=== PATIENT | male | born 1990 | race African-American/Black ===

== ENCOUNTER 2020-05-25 10:04 | Inpatient (IN) | payer MEDICAID, OTHER ==
[~2020-05-25] VITALS: Ht 167.6 cm; Wt 38.3 kg
[2020-05-25] MEDS ORDERED: SODIUM CHLORIDE 0.9% 1,000 ML IV ONE (10:45)
[2020-05-25 12:34] LABS: BASOPHILS % 0.4 % (0.0-2.0); EOSINOPHILS % 1.9 % (0.0-5.0); HEMATOCRIT. 55.5 % (42.0-52.0); HEMOGLOBIN. 17.2 g/dL (14.0-18.0); LYMPHOCYTES % 23.4 % (20.0-50.0); MEAN CORPUSCULAR HEMOGLOBIN 28.8 pg (28.0-32.0); MEAN CORPUSCULAR VOLUME 92.6 fL (80.0-94.0); MEAN PLATELET VOLUME 10.5 fl (7.4-10.4); MONOCYTES % 11.3 % (2.0-8.0); PLATELET 271 x1000/uL (130-400); RED BLOOD CELL COUNT 5.99 mill/uL (4.7-6.1); RED CELL DISTRIBUTION WIDTH 14.2 % (11.6-14.6)
[2020-05-25 12:36] LABS: CHLORIDE 141 mEq/L (98-107)
[2020-05-25 13:12] LABS: INR 1.1; PARTIAL THROMBOPLASTIN TIME 32.5 sec (23.4-31.0); PROTHROMBIN TIME 11.6 sec (9.6-11.0)
[2020-05-25 15:06] LABS: CLARITY URINE CLOUDY (CLEAR); COLOR URINE YELLOW (YELLOW); KETONES URINE NEGATIVE (NEGATIVE); LEUKOCYTE ESTERASE URINE 1+ (NEGATIVE); NITRITE URINE NEGATIVE (NEGATIVE); OCCULT BLOOD URINE 2+ (NEGATIVE); PH URINE 6.5 (4.5-8.0); PROTEIN URINE 2+ (NEGATIVE); SPECIFIC GRAVITY URINE 1.031 (1.005-1.030)
[2020-05-25] MEDS ORDERED: CEFTRIAXONE 1 G PREMIX 50 ML IV ONE (15:45)
[2020-05-25] MEDS ORDERED: DEXTROSE 5% WATER 1,000 ML IV ONE (17:45)
[2020-05-25] MEDS ORDERED: LORAZEPAM 2MG/ML CPJ IV PRN (19:45)
[2020-05-25] MEDS ORDERED: ONDANSETRON HCL 4MG/2ML INJ IV PRN (19:45)
[2020-05-25] MEDS: FAMOTIDINE 20MG/2ML VIAL IV SCH (21:44)
[2020-05-25] MEDS: DEXTROSE 5% WATER 1,000 ML IV SCH (21:44)
[2020-05-26] MEDS: DEXTROSE 5% WATER 1,000 ML IV SCH (05:00)
[2020-05-26] MEDS: FAMOTIDINE 20MG/2ML VIAL IV SCH (09:00)
[2020-05-26 09:48] LABS: BASOPHILS % 0.5 % (0.0-2.0); EOSINOPHILS % 1.6 % (0.0-5.0); HEMATOCRIT. 54.4 % (42.0-52.0); HEMOGLOBIN. 16.7 g/dL (14.0-18.0); LYMPHOCYTES % 22.8 % (20.0-50.0); MEAN CORPUSCULAR HEMOGLOBIN 28.7 pg (28.0-32.0); MEAN CORPUSCULAR VOLUME 93.5 fL (80.0-94.0); MEAN PLATELET VOLUME 10.5 fl (7.4-10.4); MONOCYTES % 11.5 % (2.0-8.0); NEUTROPHILS % 63.6 % (40.0-76.0); PLATELET 241 x1000/uL (130-400); RED BLOOD CELL COUNT 5.82 mill/uL (4.7-6.1); RED CELL DISTRIBUTION WIDTH 14.1 % (11.6-14.6)
[2020-05-26] MEDS ORDERED: VANCOMYCIN 1 G PREMIX 200 ML IV SCH (10:00)
[2020-05-26 10:37] LABS: CHLORIDE 133 mEq/L (98-107)
[2020-05-26 10:44] LABS: PHOSPHORUS 5.8 mg/dL (2.5-4.9)
[2020-05-26] MEDS: SODIUM CHLORIDE 0.45% 1,000 ML IV SCH (13:10)
[2020-05-26] MEDS ORDERED: PIPERACILLIN/TAZ 3.375G PREMIX 50 ML IV SCH (14:00)
[2020-05-26] MEDS ORDERED: PIPERACILLIN/TAZOBACTAM 2.25 G in DEXTROSE 5% WATER 50 ML IV SCH (14:00)
[2020-05-26] MEDS: PIPERACILLIN/TAZOBACTAM 3.375 G in DEXT 5% WATER 100 ML IV SCH (15:21)
[2020-05-27] MEDS: SODIUM CHLORIDE 0.45% 1,000 ML IV SCH ×4 (00:21→21:00)
[2020-05-27] MEDS: VANCOMYCIN 1 G PREMIX 200 ML IV SCH ×3 (00:22→21:00)
[2020-05-27] MEDS: FAMOTIDINE 20MG/2ML VIAL IV SCH ×3 (00:22→22:27)
[2020-05-27] MEDS: PIPERACILLIN/TAZOBACTAM 3.375 G in DEXT 5% WATER 100 ML IV SCH ×3 (02:12→17:22)
[2020-05-27 04:24] LABS: BASOPHILS % 0.5 % (0.0-2.0); CHLORIDE 125 mEq/L (98-107); EOSINOPHILS % 1.7 % (0.0-5.0); HEMATOCRIT. 46.6 % (42.0-52.0); LYMPHOCYTES % 20.8 % (20.0-50.0); MEAN CORPUSCULAR VOLUME 89.7 fL (80.0-94.0); MEAN PLATELET VOLUME 10.3 fl (7.4-10.4); MONOCYTES % 10.9 % (2.0-8.0); NEUTROPHILS % 66.1 % (40.0-76.0); PLATELET 154 x1000/uL (130-400); RED BLOOD CELL COUNT 5.19 mill/uL (4.7-6.1); RED CELL DISTRIBUTION WIDTH 13.1 % (11.6-14.6)
[2020-05-27 04:30] LABS: PHOSPHORUS 3.6 mg/dL (2.5-4.9)
[2020-05-27 05:01] LABS: HEPATITIS B SURFACE ANTIGEN NEGATIVE
[2020-05-27 05:31] LABS: HEPATITIS A AB IGM NEGATIVE (NEGATIVE)
[2020-05-27] MEDS ORDERED: POTASSIUM CHLORIDE INJ 40 MEQ in DEXT 5% WATER 250 ML IV ONE (07:00)
[2020-05-27 12:15] VITALS: BP 130/81
[2020-05-27 16:00] VITALS: BP 113/69
[2020-05-27] MEDS ORDERED: [UNRECOGNIZED DRUG - CODE] PO (16:29)
[2020-05-27] MEDS ORDERED: LORA-249 PO (16:29)
[2020-05-27] MEDS ORDERED: ESOM40SU PO (16:29)
[2020-05-27] MEDS: ACETAMINOPHEN 650MG SUPP PR PRN (17:22)
[2020-05-27 20:00] VITALS: BP 104/51
[2020-05-27 22:00] VITALS: BP 121/74
[2020-05-28] MEDS: PIPERACILLIN/TAZOBACTAM 3.375 G in DEXT 5% WATER 100 ML IV SCH ×3 (01:00→18:37)
[2020-05-28 04:00] VITALS: BP 128/65
[2020-05-28] MEDS: SODIUM CHLORIDE 0.45% 1,000 ML IV SCH ×3 (04:47→21:00)
[2020-05-28 07:59] LABS: BASOPHILS % 0.3 % (0.0-2.0); EOSINOPHILS % 0.8 % (0.0-5.0); HEMATOCRIT. 40.6 % (42.0-52.0); HEMOGLOBIN. 13.1 g/dL (14.0-18.0); LYMPHOCYTES % 16.6 % (20.0-50.0); MEAN CORPUSCULAR HEMOGLOBIN 29.2 pg (28.0-32.0); MEAN CORPUSCULAR VOLUME 90.3 fL (80.0-94.0); MEAN PLATELET VOLUME 10.8 fl (7.4-10.4); MONOCYTES % 8.9 % (2.0-8.0); NEUTROPHILS % 73.4 % (40.0-76.0); PLATELET 120 x1000/uL (130-400); RED CELL DISTRIBUTION WIDTH 13.3 % (11.6-14.6)
[2020-05-28 08:00] VITALS: BP 130/82
[2020-05-28 08:14] LABS: CHLORIDE 123 mEq/L (98-107)
[2020-05-28 08:24] LABS: PHOSPHORUS 2.3 mg/dL (2.5-4.9)
[2020-05-28] MEDS: FAMOTIDINE 20MG/2ML VIAL IV SCH (09:57)
[2020-05-28 12:00] VITALS: BP 114/67
[2020-05-28] MEDS: ACETAMINOPHEN 650MG SUPP PR PRN (13:30)
[2020-05-28 20:00] VITALS: BP 132/81
[2020-05-29] MEDS: FAMOTIDINE 20MG/2ML VIAL IV SCH ×3 (00:11→21:50)
[2020-05-29] MEDS: VANCOMYCIN 500 MG PREMIX 100 ML IV SCH ×3 (00:13→21:50)
[2020-05-29 00:40] VITALS: BP 135/78
[2020-05-29] MEDS: PIPERACILLIN/TAZOBACTAM 3.375 G in DEXT 5% WATER 100 ML IV SCH ×3 (02:02→18:09)
[2020-05-29] MEDS: SODIUM CHLORIDE 0.45% 1,000 ML IV SCH ×3 (03:27→21:50)
[2020-05-29 04:00] VITALS: BP 108/67
[2020-05-29 08:21] VITALS: BP 106/53
[2020-05-29 11:55] VITALS: BP 104/54
[2020-05-29 16:00] VITALS: BP 105/63
[2020-05-29 18:56] LABS: CHLORIDE 119 mEq/L (98-107)
[2020-05-29 20:00] VITALS: BP 91/57
[2020-05-29] MEDS ORDERED: POTASSIUM CHLORIDE 20MEQ/PACKET PO NR (20:30)
[2020-05-29] MEDS: ACETAMINOPHEN 650MG SUPP PR PRN (21:50)
[2020-05-30] VITALS: BP 109/68
[2020-05-30] MEDS: PIPERACILLIN/TAZOBACTAM 3.375 G in DEXT 5% WATER 100 ML IV SCH ×3 (00:10→16:18)
[2020-05-30] MEDS: ACETAMINOPHEN 650MG SUPP PR PRN ×2 (03:58→21:31)
[2020-05-30 04:00] VITALS: BP 122/78
[2020-05-30] MEDS: SODIUM CHLORIDE 0.45% 1,000 ML IV SCH (05:09)
[2020-05-30] MEDS ORDERED: POTASSIUM CHLORIDE 20MEQ/PACKET PO NR (06:00)
[2020-05-30 07:06] LABS: CHLORIDE 114 mEq/L (98-107)
[2020-05-30 08:00] VITALS: BP 99/52
[2020-05-30] MEDS: FAMOTIDINE 20MG/2ML VIAL IV SCH ×2 (08:15→21:30)
[2020-05-30] MEDS: VANCOMYCIN 500 MG PREMIX 100 ML IV SCH (08:16)
[2020-05-30 12:00] VITALS: BP 121/69
[2020-05-30] MEDS: VANCOMYCIN 750 MG PREMIX 150 ML IV SCH (15:12)
[2020-05-30 16:00] VITALS: BP 121/74
[2020-05-30 20:00] VITALS: BP 103/59
[2020-05-31] VITALS (8 sets, daily range): BP systolic 89–105; BP diastolic 45–56
[2020-05-31] MEDS: PIPERACILLIN/TAZOBACTAM 3.375 G in DEXT 5% WATER 100 ML IV SCH ×3 (01:16→17:29)
[2020-05-31] MEDS: VANCOMYCIN 750 MG PREMIX 150 ML IV SCH ×2 (03:57→14:20)
[2020-05-31 08:46] LABS: CHLORIDE 111 mEq/L (98-107)
[2020-05-31 08:54] LABS: HEMATOCRIT. 33.2 % (42.0-52.0); MEAN CORPUSCULAR HEMOGLOBIN 28.7 pg (28.0-32.0); MEAN CORPUSCULAR VOLUME 86.8 fL (80.0-94.0); RED BLOOD CELL COUNT 3.82 mill/uL (4.7-6.1); RED CELL DISTRIBUTION WIDTH 12.9 % (11.6-14.6)
[2020-05-31] MEDS: FAMOTIDINE 20MG/2ML VIAL IV SCH ×2 (09:47→20:58)
[2020-05-31 10:08] LABS: PLATELET ESTIMATE DECREASED
[2020-05-31] MEDS ORDERED: POTASSIUM CHLORIDE INJ 40 MEQ in DEXT 5% WATER 250 ML IV SCH (11:00)
[2020-05-31] MEDS ORDERED: POTASSIUM CHLORIDE INJ 40 MEQ in DEXT 5% WATER 250 ML IV ONE (11:30)
[2020-05-31] MEDS: DEXT 5%/0.45% NACL KCL 10MEQ/L 1,000 ML IV SCH (20:57)
[2020-06-01] VITALS: BP 103/60
[2020-06-01 04:00] VITALS: BP 98/54
[2020-06-01 08:00] VITALS: BP 109/64
[2020-06-01 08:22] LABS: HEMATOCRIT. 32.6 % (42.0-52.0); HEMOGLOBIN. 10.8 g/dL (14.0-18.0); MEAN CORPUSCULAR HEMOGLOBIN 29.1 pg (28.0-32.0); MEAN CORPUSCULAR VOLUME 87.7 fL (80.0-94.0); MEAN PLATELET VOLUME 10.4 fl (7.4-10.4); PLATELET 111 x1000/uL (130-400); RED BLOOD CELL COUNT 3.71 mill/uL (4.7-6.1); RED CELL DISTRIBUTION WIDTH 13.4 % (11.6-14.6)
[2020-06-01 08:41] LABS: CHLORIDE 118 mEq/L (98-107)
[2020-06-01] MEDS: FAMOTIDINE 20MG/2ML VIAL IV SCH ×2 (09:03→23:28)
[2020-06-01] MEDS: DEXT 5%/0.45% NACL KCL 10MEQ/L 1,000 ML IV SCH (09:17)
[2020-06-01 12:00] VITALS: BP 103/57
[2020-06-01] MEDS ORDERED: POTASSIUM CHLORIDE INJ 40 MEQ in DEXT 5% WATER 250 ML IV ONE (14:00)
[2020-06-01 16:00] VITALS: BP 103/57
[2020-06-01 20:36] VITALS: BP 102/55
[2020-06-01] MEDS: LORAZEPAM 2MG/ML CPJ IV PRN (23:08)
[2020-06-02 00:18] VITALS: BP 102/56
[2020-06-02 04:00] VITALS: BP 102/60
[2020-06-02] MEDS: DEXT 5%/0.45% NACL KCL 10MEQ/L 1,000 ML IV SCH (06:24)
[2020-06-02 07:05] LABS: PLATELET ESTIMATE DECREASED
[2020-06-02 07:40] LABS: MEAN CORPUSCULAR VOLUME 87.3 fL (80.0-94.0); MEAN PLATELET VOLUME 10.3 fl (7.4-10.4); PLATELET 126 x1000/uL (130-400); RED BLOOD CELL COUNT 3.78 mill/uL (4.7-6.1); RED CELL DISTRIBUTION WIDTH 13.3 % (11.6-14.6)
[2020-06-02 07:48] LABS: CHLORIDE 119 mEq/L (98-107)
[2020-06-02 08:00] VITALS: BP 108/59
[2020-06-02] MEDS: FAMOTIDINE 20MG/2ML VIAL IV SCH ×2 (08:28→20:56)
[2020-06-02] MEDS: LORAZEPAM 2MG/ML CPJ IV PRN ×2 (08:28→22:57)
[2020-06-02 12:00] VITALS: BP 96/58
[2020-06-02] MEDS ORDERED: SENNOSIDES/DOCUSATE SOD 8.6/50MG TABLET NG PRN (12:15)
[2020-06-02] MEDS: POLYETHYLENE GLYCOL 3350 (17GM) 1 DOSE PACK NG SCH (14:00)
[2020-06-02] MEDS: DEXT 5% WATER + KCL 20MEQ/L 1,000 ML IV SCH (14:00)
[2020-06-02 16:00] VITALS: BP 99/53
[2020-06-02 20:00] VITALS: BP 93/66
[2020-06-03] VITALS: BP 108/58
[2020-06-03] MEDS: DEXT 5% WATER + KCL 20MEQ/L 1,000 ML IV SCH ×2 (03:12→16:37)
[2020-06-03 04:00] VITALS: BP_SYST 108; BP_DIAS 58; BP_DIAS 59
[2020-06-03 07:32] LABS: CHLORIDE 115 mEq/L (98-107)
[2020-06-03 07:44] LABS: PHOSPHORUS 3.7 mg/dL (2.5-4.9)
[2020-06-03 08:00] VITALS: BP 113/73
[2020-06-03] MEDS: FAMOTIDINE 20MG/2ML VIAL IV SCH ×2 (08:26→22:07)
[2020-06-03] MEDS: POLYETHYLENE GLYCOL 3350 (17GM) 1 DOSE PACK NG SCH (08:26)
[2020-06-03 12:00] VITALS: BP 109/74
[2020-06-03] MEDS ORDERED: POLYETHYLENE GLYCOL 3350 (17GM) 1 DOSE PACK NG SCH (13:30)
[2020-06-03] MEDS: LORAZEPAM 2MG/ML CPJ IV PRN (13:52)
[2020-06-03 16:00] VITALS: BP 110/69
[2020-06-03 19:00] VITALS: BP 104/70
[2020-06-04 00:05] VITALS: BP 104/64
[2020-06-04] MEDS: LORAZEPAM 2MG/ML CPJ IV PRN ×4 (01:41→23:46)
[2020-06-04 04:00] VITALS: BP 96/62
[2020-06-04] MEDS: DEXT 5% WATER + KCL 20MEQ/L 1,000 ML IV SCH (06:24)
[2020-06-04 08:00] VITALS: BP 103/62
[2020-06-04] MEDS: POLYETHYLENE GLYCOL 3350 (17GM) 1 DOSE PACK NG SCH (08:36)
[2020-06-04] MEDS: FAMOTIDINE 20MG/2ML VIAL IV SCH ×2 (08:36→23:46)
[2020-06-04 12:00] VITALS: BP 107/69
[2020-06-04 16:00] VITALS: BP 105/63
[2020-06-04] MEDS: ACETAMINOPHEN 650MG SUPP PR PRN (16:21)
[2020-06-04 20:00] VITALS: BP 97/57
[2020-06-05 00:28] VITALS: BP 97/60
[2020-06-05 04:00] VITALS: BP 96/60
[2020-06-05 08:00] VITALS: BP_SYST 94
[2020-06-05] MEDS: POLYETHYLENE GLYCOL 3350 (17GM) 1 DOSE PACK NG SCH (08:33)
[2020-06-05] MEDS: FAMOTIDINE 20MG/2ML VIAL IV SCH ×2 (08:33→21:46)
[2020-06-05] MEDS: LORAZEPAM 2MG/ML CPJ IV PRN ×3 (09:01→18:19)
[2020-06-05 12:00] VITALS: BP 94/63
[2020-06-05 16:00] VITALS: BP 99/64
[2020-06-05 20:00] VITALS: BP 90/49
[2020-06-06 00:44] VITALS: BP 92/60
[2020-06-06 08:00] VITALS: BP 131/86
[2020-06-06] MEDS: FAMOTIDINE 20MG/2ML VIAL IV SCH ×2 (08:49→20:07)
[2020-06-06] MEDS: POLYETHYLENE GLYCOL 3350 (17GM) 1 DOSE PACK NG SCH (08:49)
[2020-06-06 11:22] LABS: BASOPHILS % 0.6 % (0.0-2.0); EOSINOPHILS % 2.2 % (0.0-5.0); HEMATOCRIT. 31.5 % (42.0-52.0); HEMOGLOBIN. 10.6 g/dL (14.0-18.0); MEAN CORPUSCULAR HEMOGLOBIN 28.8 pg (28.0-32.0); MEAN CORPUSCULAR VOLUME 85.4 fL (80.0-94.0); MEAN PLATELET VOLUME 8.2 fl (7.4-10.4); MONOCYTES % 8.6 % (2.0-8.0); NEUTROPHILS % 73.6 % (40.0-76.0); PLATELET 397 x1000/uL (130-400); RED BLOOD CELL COUNT 3.69 mill/uL (4.7-6.1); RED CELL DISTRIBUTION WIDTH 13.4 % (11.6-14.6)
[2020-06-06 11:30] LABS: CHLORIDE 107 mEq/L (98-107)
[2020-06-06 12:00] VITALS: BP 102/57
[2020-06-06 16:00] VITALS: BP_SYST 99; BP_DIAS 60; BP_DIAS 91
[2020-06-06 20:00] VITALS: BP 106/64
[2020-06-06] MEDS: LORAZEPAM 2MG/ML CPJ IV PRN (20:07)
[2020-06-07] VITALS: BP 100/60
[2020-06-07 04:30] VITALS: BP 105/69
[2020-06-07] MEDS ORDERED: LORAZEPAM 2MG/ML CPJ IV PRN (05:30)
[2020-06-07 06:57] LABS: BASOPHILS % 0.4 % (0.0-2.0); EOSINOPHILS % 1.2 % (0.0-5.0); HEMATOCRIT. 31.8 % (42.0-52.0); HEMOGLOBIN. 10.7 g/dL (14.0-18.0); MEAN CORPUSCULAR HEMOGLOBIN 29.5 pg (28.0-32.0); MEAN CORPUSCULAR VOLUME 87.5 fL (80.0-94.0); MEAN PLATELET VOLUME 8.7 fl (7.4-10.4); NEUTROPHILS % 80.4 % (40.0-76.0); PLATELET 423 x1000/uL (130-400); RED BLOOD CELL COUNT 3.63 mill/uL (4.7-6.1); RED CELL DISTRIBUTION WIDTH 13.4 % (11.6-14.6)
[2020-06-07 07:07] LABS: CHLORIDE 108 mEq/L (98-107)
[2020-06-07 08:00] VITALS: BP 105/71
[2020-06-07] MEDS: FAMOTIDINE 20MG/2ML VIAL IV SCH ×2 (08:37→19:59)
[2020-06-07] MEDS: POLYETHYLENE GLYCOL 3350 (17GM) 1 DOSE PACK NG SCH (09:00)
[2020-06-07 12:00] VITALS: BP 108/75
[2020-06-07] MEDS: LORAZEPAM 2MG/ML CPJ IV PRN (15:36)
[2020-06-07] MEDS: DEXT 5%/0.45% NACL 1000ML 1,000 ML IV SCH (17:00)
[2020-06-07 20:00] VITALS: BP 112/71
[2020-06-08 00:05] VITALS: BP 115/76
[2020-06-08 04:00] VITALS: BP 113/74
[2020-06-08] MEDS: LORAZEPAM 2MG/ML CPJ IV PRN ×3 (04:39→20:38)
[2020-06-08] MEDS: DEXT 5%/0.45% NACL 1000ML 1,000 ML IV SCH ×2 (05:27→20:38)
[2020-06-08 07:37] LABS: BASOPHILS % 0.7 % (0.0-2.0); HEMATOCRIT. 34.7 % (42.0-52.0); HEMOGLOBIN. 11.4 g/dL (14.0-18.0); LYMPHOCYTES % 13.3 % (20.0-50.0); MEAN CORPUSCULAR HEMOGLOBIN 28.8 pg (28.0-32.0); MEAN CORPUSCULAR VOLUME 87.8 fL (80.0-94.0); MEAN PLATELET VOLUME 8.6 fl (7.4-10.4); MONOCYTES % 8.2 % (2.0-8.0); NEUTROPHILS % 75.8 % (40.0-76.0); PLATELET 476 x1000/uL (130-400); RED BLOOD CELL COUNT 3.96 mill/uL (4.7-6.1); RED CELL DISTRIBUTION WIDTH 13.2 % (11.6-14.6)
[2020-06-08 07:55] LABS: CHLORIDE 112 mEq/L (98-107)
[2020-06-08 08:00] VITALS: BP 114/78
[2020-06-08] MEDS: POLYETHYLENE GLYCOL 3350 (17GM) 1 DOSE PACK NG SCH (09:00)
[2020-06-08] MEDS: FAMOTIDINE 20MG/2ML VIAL IV SCH ×2 (09:13→20:38)
[2020-06-08 12:00] VITALS: BP 112/83
[2020-06-08 16:00] VITALS: BP 111/73
[2020-06-08 20:00] VITALS: BP 103/72
[2020-06-09 00:05] VITALS: BP 109/76
[2020-06-09 04:00] VITALS: BP 109/71
[2020-06-09 08:36] VITALS: BP 108/74
[2020-06-09] MEDS: POLYETHYLENE GLYCOL 3350 (17GM) 1 DOSE PACK NG SCH (09:00)
[2020-06-09] MEDS: FAMOTIDINE 20MG/2ML VIAL IV SCH ×2 (09:32→21:44)
[2020-06-09] MEDS: DEXT 5%/0.45% NACL 1000ML 1,000 ML IV SCH ×2 (09:35→21:44)
[2020-06-09 12:08] VITALS: BP 126/78
[2020-06-09] MEDS: LORAZEPAM 2MG/ML CPJ IV PRN ×2 (13:15→17:23)
[2020-06-09 16:50] VITALS: BP 134/99
[2020-06-09 20:00] VITALS: BP 132/89
[2020-06-10] VITALS (7 sets, daily range): BP systolic 111–130; BP diastolic 72–101
[2020-06-10] MEDS: POLYETHYLENE GLYCOL 3350 (17GM) 1 DOSE PACK NG SCH (09:00)
[2020-06-10] MEDS: FAMOTIDINE 20MG/2ML VIAL IV SCH ×2 (09:32→21:53)
[2020-06-10] MEDS: DEXT 5%/0.45% NACL 1000ML 1,000 ML IV SCH (14:09)
[2020-06-10] MEDS: LORAZEPAM 2MG/ML CPJ IV PRN (15:59)
[2020-06-11 00:13] VITALS: BP 141/76
[2020-06-11] MEDS: LORAZEPAM 2MG/ML CPJ IV PRN (01:30)
[2020-06-11] MEDS: DEXT 5%/0.45% NACL 1000ML 1,000 ML IV SCH ×2 (03:49→15:28)
[2020-06-11 04:00] VITALS: BP 124/95
[2020-06-11 08:00] VITALS: BP 132/104
[2020-06-11] MEDS: POLYETHYLENE GLYCOL 3350 (17GM) 1 DOSE PACK NG SCH (09:00)
[2020-06-11] MEDS: FAMOTIDINE 20MG/2ML VIAL IV SCH ×2 (10:11→21:53)
[2020-06-11 12:00] VITALS: BP 130/85
[2020-06-11 16:00] VITALS: BP 126/84
[2020-06-11 20:00] VITALS: BP 123/83
[2020-06-12 00:11] VITALS: BP 119/66
[2020-06-12] MEDS: DEXT 5%/0.45% NACL 1000ML 1,000 ML IV SCH ×2 (03:53→16:17)
[2020-06-12 04:00] VITALS: BP 116/71
[2020-06-12 08:00] VITALS: BP 152/74
[2020-06-12] MEDS: POLYETHYLENE GLYCOL 3350 (17GM) 1 DOSE PACK NG SCH (09:00)
[2020-06-12] MEDS: FAMOTIDINE 20MG/2ML VIAL IV SCH ×2 (10:21→21:00)
[2020-06-12 12:00] VITALS: BP 131/76
[2020-06-12 16:00] VITALS: BP 136/93
[2020-06-12] MEDS: ACETAMINOPHEN 650MG SUPP PR PRN (17:38)
[2020-06-12 20:00] VITALS: BP 140/78
[2020-06-13 00:05] VITALS: BP 134/71
[2020-06-13 04:00] VITALS: BP 133/84
[2020-06-13] MEDS: POLYETHYLENE GLYCOL 3350 (17GM) 1 DOSE PACK NG SCH (09:00)
[2020-06-13] MEDS ORDERED: LIDOCAINE HCL 1% 20ML VIAL (Pyxis) INJ ONE (10:00)
[2020-06-13] MEDS ORDERED: LORAZEPAM 2MG/ML CPJ IM NR (11:00)
[2020-06-13 12:00] VITALS: BP 136/90
[2020-06-13 16:00] VITALS: BP 132/88
[2020-06-13] MEDS: FAMOTIDINE 20MG/2ML VIAL IV SCH ×2 (17:54→21:03)
[2020-06-13] MEDS: CIPROFLOXACIN 0.3% OPHTH SOLN 2.5ML RIGHTEYE SCH ×2 (17:54→21:00)
[2020-06-13] MEDS: DEXT 5%/0.45% NACL 1000ML 1,000 ML IV SCH ×2 (19:40→22:42)
[2020-06-13 20:00] VITALS: BP 115/79
[2020-06-14 00:04] VITALS: BP 112/60
[2020-06-14 04:00] VITALS: BP 139/87
[2020-06-14 06:59] LABS: EOSINOPHILS % 2.3 % (0.0-5.0); HEMATOCRIT. 34.9 % (42.0-52.0); HEMOGLOBIN. 11.2 g/dL (14.0-18.0); LYMPHOCYTES % 16.6 % (20.0-50.0); MEAN CORPUSCULAR HEMOGLOBIN 27.9 pg (28.0-32.0); MEAN CORPUSCULAR VOLUME 86.3 fL (80.0-94.0); MEAN PLATELET VOLUME 8.7 fl (7.4-10.4); MONOCYTES % 9.6 % (2.0-8.0); NEUTROPHILS % 70.5 % (40.0-76.0); PLATELET 465 x1000/uL (130-400); RED BLOOD CELL COUNT 4.04 mill/uL (4.7-6.1); RED CELL DISTRIBUTION WIDTH 13.3 % (11.6-14.6)
[2020-06-14 08:28] LABS: CHLORIDE 108 mEq/L (98-107)
[2020-06-14] MEDS: POLYETHYLENE GLYCOL 3350 (17GM) 1 DOSE PACK NG SCH (09:00)
[2020-06-14] MEDS: CIPROFLOXACIN 0.3% OPHTH SOLN 2.5ML RIGHTEYE SCH ×4 (09:11→22:42)
[2020-06-14] MEDS: FAMOTIDINE 20MG/2ML VIAL IV SCH ×2 (09:11→22:42)
[2020-06-14] MEDS: DEXT 5%/0.45% NACL 1000ML 1,000 ML IV SCH (09:16)
[2020-06-14] MEDS ORDERED: POTASSIUM CHLORIDE 20MEQ/PACKET PO NR (10:30)
[2020-06-14 12:00] VITALS: BP 125/86
[2020-06-14] MEDS ORDERED: POTASSIUM CHLORIDE INJ 40 MEQ in SODIUM CHLORIDE 0.9% 250 ML IV NR (14:00)
[2020-06-14 16:00] VITALS: BP 146/98
[2020-06-14] MEDS: LORAZEPAM 2MG/ML CPJ IV PRN (18:13)
[2020-06-14 20:00] VITALS: BP 151/114
[2020-06-14] MEDS: NEO/POLYMYX B SULF/DEXAMETH 0.1% OPHTH SUSP 5ML RIGHTEYE SCH (23:54)
[2020-06-15] VITALS: BP 133/93
[2020-06-15] MEDS: LORAZEPAM 2MG/ML CPJ IV PRN ×2 (00:34→15:25)
[2020-06-15 04:00] VITALS: BP 147/96
[2020-06-15] MEDS: NEO/POLYMYX B SULF/DEXAMETH 0.1% OPHTH SUSP 5ML RIGHTEYE SCH ×4 (05:55→23:10)
[2020-06-15 07:09] LABS: HEMATOCRIT. 37.4 % (42.0-52.0); HEMOGLOBIN. 12.2 g/dL (14.0-18.0); MEAN CORPUSCULAR HEMOGLOBIN 27.8 pg (28.0-32.0); MEAN CORPUSCULAR VOLUME 84.8 fL (80.0-94.0); RED BLOOD CELL COUNT 4.41 mill/uL (4.7-6.1); RED CELL DISTRIBUTION WIDTH 13.4 % (11.6-14.6)
[2020-06-15 07:10] LABS: CHLORIDE 108 mEq/L (98-107)
[2020-06-15 08:00] VITALS: BP 137/98
[2020-06-15] MEDS: POLYETHYLENE GLYCOL 3350 (17GM) 1 DOSE PACK NG SCH (09:00)
[2020-06-15 09:36] LABS: PLATELET ESTIMATE SLIGHTLY INCREASED
[2020-06-15] MEDS: FAMOTIDINE 20MG/2ML VIAL IV SCH ×2 (09:56→23:10)
[2020-06-15] MEDS: CIPROFLOXACIN 0.3% OPHTH SOLN 2.5ML RIGHTEYE SCH ×4 (09:57→21:00)
[2020-06-15] MEDS ORDERED: POTASSIUM CHLORIDE 20MEQ/PACKET PO NR (10:30)
[2020-06-15 12:00] VITALS: BP 126/87
[2020-06-15 16:00] VITALS: BP 114/79
[2020-06-15] MEDS ORDERED: POTASSIUM CHLORIDE INJ 40 MEQ in SODIUM CHLORIDE 0.9% 230 ML IV NR (18:30)
[2020-06-15] MEDS: DEXT 5%/0.45% NACL 1000ML 1,000 ML IV SCH (23:12)
[2020-06-16] MEDS: NEO/POLYMYX B SULF/DEXAMETH 0.1% OPHTH SUSP 5ML RIGHTEYE SCH ×3 (05:50→18:10)
[2020-06-16 08:06] LABS: CHLORIDE 107 mEq/L (98-107)
[2020-06-16] MEDS: POLYETHYLENE GLYCOL 3350 (17GM) 1 DOSE PACK NG SCH (08:18)
[2020-06-16 08:25] VITALS: BP 127/102
[2020-06-16 08:46] LABS: BASOPHILS % 0.8 % (0.0-2.0); EOSINOPHILS % 3.5 % (0.0-5.0); HEMATOCRIT. 37.8 % (42.0-52.0); HEMOGLOBIN. 12.5 g/dL (14.0-18.0); MEAN CORPUSCULAR HEMOGLOBIN 28.1 pg (28.0-32.0); MEAN CORPUSCULAR VOLUME 85.2 fL (80.0-94.0); MONOCYTES % 11.6 % (2.0-8.0); NEUTROPHILS % 62.1 % (40.0-76.0); RED BLOOD CELL COUNT 4.43 mill/uL (4.7-6.1); RED CELL DISTRIBUTION WIDTH 13.2 % (11.6-14.6)
[2020-06-16] MEDS: FAMOTIDINE 20MG/2ML VIAL IV SCH ×2 (09:38→20:02)
[2020-06-16] MEDS: CIPROFLOXACIN 0.3% OPHTH SOLN 2.5ML RIGHTEYE SCH ×4 (09:47→20:03)
[2020-06-16 10:50] LABS: PLATELET 290 x1000/uL (130-400)
[2020-06-16] MEDS: DEXT 5%/0.45% NACL 1000ML 1,000 ML IV SCH (13:22)
[2020-06-16 20:00] VITALS: BP 123/87
[2020-06-16] MEDS: LORAZEPAM 2MG/ML CPJ IV PRN (20:02)
[2020-06-17] MEDS: NEO/POLYMYX B SULF/DEXAMETH 0.1% OPHTH SUSP 5ML RIGHTEYE SCH ×4 (00:07→17:21)
[2020-06-17] MEDS: DEXT 5%/0.45% NACL 1000ML 1,000 ML IV SCH ×2 (00:33→14:45)
[2020-06-17 08:00] VITALS: BP 126/98
[2020-06-17] MEDS: POLYETHYLENE GLYCOL 3350 (17GM) 1 DOSE PACK NG SCH (09:00)
[2020-06-17] MEDS: FAMOTIDINE 20MG/2ML VIAL IV SCH ×2 (09:29→21:14)
[2020-06-17] MEDS: CIPROFLOXACIN 0.3% OPHTH SOLN 2.5ML RIGHTEYE SCH ×4 (09:37→21:15)
[2020-06-17] MEDS: LORAZEPAM 2MG/ML CPJ IV PRN (17:39)
[2020-06-18] MEDS: NEO/POLYMYX B SULF/DEXAMETH 0.1% OPHTH SUSP 5ML RIGHTEYE SCH ×3 (01:01→17:25)
[2020-06-18] MEDS: LORAZEPAM 2MG/ML CPJ IV PRN ×2 (01:10→08:55)
[2020-06-18 08:00] VITALS: BP 98/66
[2020-06-18] MEDS: FAMOTIDINE 20MG/2ML VIAL IV SCH (08:53)
[2020-06-18] MEDS: CIPROFLOXACIN 0.3% OPHTH SOLN 2.5ML RIGHTEYE SCH ×4 (08:53→21:00)
[2020-06-18] MEDS: POLYETHYLENE GLYCOL 3350 (17GM) 1 DOSE PACK NG SCH (08:55)
[2020-06-18] MEDS: DEXT 5%/0.45% NACL 1000ML 1,000 ML IV SCH ×2 (08:59→16:57)
[2020-06-18 12:44] LABS: BASOPHILS % 1.4 % (0.0-2.0); EOSINOPHILS % 8.5 % (0.0-5.0); HEMATOCRIT. 36.9 % (42.0-52.0); HEMOGLOBIN. 12.1 g/dL (14.0-18.0); LYMPHOCYTES % 23.6 % (20.0-50.0); MEAN CORPUSCULAR HEMOGLOBIN 27.9 pg (28.0-32.0); MEAN CORPUSCULAR VOLUME 85.2 fL (80.0-94.0); MONOCYTES % 8.6 % (2.0-8.0); NEUTROPHILS % 57.9 % (40.0-76.0); RED BLOOD CELL COUNT 4.33 mill/uL (4.7-6.1); RED CELL DISTRIBUTION WIDTH 13.3 % (11.6-14.6)
[2020-06-18 12:53] LABS: CHLORIDE 107 mEq/L (98-107)
[2020-06-18] MEDS: PANTOPRAZOLE SODIUM 40 MG/VIAL IV SCH ×2 (13:21→23:52)
[2020-06-18 13:28] LABS: INR 1.2; PARTIAL THROMBOPLASTIN TIME 48.7 sec (23.4-31.0); PROTHROMBIN TIME 12.8 sec (9.6-11.0)
[2020-06-18] MEDS ORDERED: CEFAZOLIN 1000MG PREMIX 50 ML IV SCH (14:00)
[2020-06-18 16:01] LABS: PLATELET 286 x1000/uL (130-400)
[2020-06-18] MEDS ORDERED: POTASSIUM CHLORIDE INJ 40 MEQ in DEXT 5% WATER 500 ML IV NR (18:00)
[2020-06-18 20:00] VITALS: BP 92/64
[2020-06-19] VITALS: BP 104/72
[2020-06-19] MEDS: LORAZEPAM 2MG/ML CPJ IV PRN ×2 (02:09→10:50)
[2020-06-19 04:00] VITALS: BP 105/69
[2020-06-19] MEDS: NEO/POLYMYX B SULF/DEXAMETH 0.1% OPHTH SUSP 5ML RIGHTEYE SCH ×4 (05:31→17:46)
[2020-06-19 07:02] LABS: CHLORIDE 109 mEq/L (98-107)
[2020-06-19 07:06] LABS: HEMATOCRIT. 37.6 % (42.0-52.0); HEMOGLOBIN. 12.6 g/dL (14.0-18.0); MEAN CORPUSCULAR HEMOGLOBIN 28.4 pg (28.0-32.0); RED BLOOD CELL COUNT 4.43 mill/uL (4.7-6.1); RED CELL DISTRIBUTION WIDTH 13.4 % (11.6-14.6)
[2020-06-19 08:00] VITALS: BP 105/80
[2020-06-19] MEDS: PANTOPRAZOLE SODIUM 40 MG/VIAL IV SCH (08:49)
[2020-06-19] MEDS: CIPROFLOXACIN 0.3% OPHTH SOLN 2.5ML RIGHTEYE SCH ×4 (08:50→21:00)
[2020-06-19] MEDS: POLYETHYLENE GLYCOL 3350 (17GM) 1 DOSE PACK NG SCH (08:50)
[2020-06-19 10:28] LABS: NUCLEATED RED BLOOD CELLS 1 /100 WBC; PLATELET ESTIMATE NORMAL
[2020-06-19] MEDS: DEXT 5%/0.45% NACL 1000ML 1,000 ML IV SCH (11:03)
[2020-06-19 12:00] VITALS: BP 113/80
[2020-06-19] MEDS ORDERED: CEFAZOLIN 1000MG PREMIX 50 ML IV SCH (12:00)
[2020-06-19] MEDS ORDERED: MIDAZOLAM HCL 5 MG/5 ML VIAL IV PRN (14:32)
[2020-06-19] MEDS ORDERED: MIDAZOLAM HCL 5 MG/5 ML VIAL ONE (14:35)
[2020-06-19] MEDS ORDERED: FENTANYL CITRATE/PF 50MCG/ML 2ML VIAL ONE (14:35)
[2020-06-19 16:00] VITALS: BP 131/99
[2020-06-19 20:00] VITALS: BP 119/98
[2020-06-20] VITALS: BP_SYST 119; BP_SYST 127; BP_DIAS 85; BP_DIAS 95
[2020-06-20] MEDS: NEO/POLYMYX B SULF/DEXAMETH 0.1% OPHTH SUSP 5ML RIGHTEYE SCH ×3 (00:13→11:21)
[2020-06-20] MEDS: PANTOPRAZOLE SODIUM 40 MG/VIAL IV SCH ×2 (00:13→09:39)
[2020-06-20] MEDS: LORAZEPAM 2MG/ML CPJ IV PRN ×2 (00:19→06:59)
[2020-06-20] MEDS: DEXT 5%/0.45% NACL 1000ML 1,000 ML IV SCH (07:00)
[2020-06-20 08:00] VITALS: BP 112/81
[2020-06-20] MEDS: CIPROFLOXACIN 0.3% OPHTH SOLN 2.5ML RIGHTEYE SCH (09:39)
[2020-06-20] MEDS: POLYETHYLENE GLYCOL 3350 (17GM) 1 DOSE PACK NG SCH (09:39)
[2020-06-20 12:00] VITALS: BP 125/82
== END 2020-06-20 13:20 | disposition home or self-care (01) | DRG 252 ==
LOC: ER 10:26 → MICUSO 16:19 → EDBEDREQ 16:26 → EDBEDREQTM 16:26 → EDBEDREQSVC 16:26 → 7EST 05-27 10:25 → 6WST 06-15 20:04 → 6EST 06-17 21:44
PROVIDERS: ADMIT Internal Medicine; ATTEND Internal Medicine
PROC: 05HY33Z Insertion of Infusion Device into Upper Vein, Percutaneous Approach (ICD-10-PCS; 2020-06-13)
PROC: B54MZZA Ultrasonography of Right Upper Extremity Veins, Guidance (ICD-10-PCS; 2020-06-13)
PROC: 0D20XUZ Change Feeding Device in Upper Intestinal Tract, External Approach (ICD-10-PCS; principal; 2020-06-19)
DX: K94.23 Gastrostomy malfunction (principal); U07.1 COVID-19; E43 Unspecified severe protein-calorie malnutrition; M41.9 Scoliosis, unspecified; N17.9 Acute kidney failure, unspecified; E86.9 Volume depletion, unspecified; E87.0 Hyperosmolality and hypernatremia; G80.9 Cerebral palsy, unspecified; E86.0 Dehydration; R74.01 Elevation of levels of liver transaminase levels; D64.9 Anemia, unspecified; Y83.8 Other surgical procedures as the cause of abnormal reaction of the patient, or of later complication, without mention of misadventure at the time of the procedure; Y82.8 Other medical devices associated with adverse incidents; R13.12 Dysphagia, oropharyngeal phase; E88.09 Other disorders of plasma-protein metabolism, not elsewhere classified; E87.6 Hypokalemia; E80.6 Other disorders of bilirubin metabolism; Z98.2 Presence of cerebrospinal fluid drainage device; Z68.1 Body mass index [BMI] 19.9 or less, adult; N39.0 Urinary tract infection, site not specified; G93.41 Metabolic encephalopathy
CPT/HCPCS: 36415; 71045; 76700; 76937; 80048; 80053; 80076; 80202; 81003; 82248; 82962; 83735; 83880; 84100; 84484; 85025; 86705; 86709; 86803; 87340; 87426; 87635; 92610; 93005; 99291; C1725; C1769; C1893; C9113; J0690; J0696; J2060; J2250; J2543; J3010; J3370; J3480; J3490; J7030; J7050; J7060; J7070; U0003

== ENCOUNTER 2020-07-13 19:26 | Emergency (ER) | payer MEDICAID ==
[~2020-07-13] VITALS: Ht 134.6 cm; Wt 32.0 kg
[~2020-07-13 19:26] MED LIST: ESOM40SU PO; LORA-249 PO; [UNRECOGNIZED DRUG - CODE] PO
[2020-07-13] MEDS ORDERED: DIATR MEGLU/DIATRIZOATE SOLN 30ML ONE (22:04)
[2020-07-14 00:18] VITALS: BP 97/64
== END 2020-07-14 00:24 | disposition home or self-care (01) ==
LOC: ER 19:33
DX: T85.528A Displacement of other gastrointestinal prosthetic devices, implants and grafts, initial encounter (principal); G80.8 Other cerebral palsy; G40.909 Epilepsy, unspecified, not intractable, without status epilepticus; Y84.8 Other medical procedures as the cause of abnormal reaction of the patient, or of later complication, without mention of misadventure at the time of the procedure; Y82.8 Other medical devices associated with adverse incidents
CPT/HCPCS: 74018; 99284; Q9963

== ENCOUNTER 2020-10-04 14:31 | Emergency (ER) | payer MEDICAID ==
[~2020-10-04] VITALS: Ht 129.5 cm; Wt 30.0 kg
[2020-10-04 17:09] VITALS: BP 118/76
== END 2020-10-04 17:10 | disposition home or self-care (01) ==
LOC: ER 14:52
DX: K94.23 Gastrostomy malfunction (principal); G40.909 Epilepsy, unspecified, not intractable, without status epilepticus; F79 Unspecified intellectual disabilities; Z99.3 Dependence on wheelchair; Y83.3 Surgical operation with formation of external stoma as the cause of abnormal reaction of the patient, or of later complication, without mention of misadventure at the time of the procedure; Y92.018 Other place in single-family (private) house as the place of occurrence of the external cause
CPT/HCPCS: 99284

== ENCOUNTER 2020-11-14 12:52 | Emergency (ER) | payer MEDICAID ==
[~2020-11-14] VITALS: Ht 104.1 cm; Wt 45.0 kg
[2020-11-14 13:43] VITALS: BP 114/77
== END 2020-11-14 14:58 ==
LOC: ER 12:52
DX: K94.03 Colostomy malfunction (principal)
CPT/HCPCS: 99281; Z7610

== ENCOUNTER 2022-07-05 07:10 | Emergency (ER) | payer MEDICAID ==
[~2022-07-05] VITALS: Ht 137.2 cm; Wt 50.0 kg
[2022-07-05 07:46] VITALS: BP 105/65
== END 2022-07-05 09:04 | disposition home or self-care (01) ==
LOC: ER 07:10
DX: Z43.1 Encounter for attention to gastrostomy (principal)
CPT/HCPCS: 43762; 99281; 99284

== ENCOUNTER 2022-07-23 11:05 | Emergency (ER) | payer MEDICAID ==
[~2022-07-23] VITALS: Ht 144.8 cm; Wt 36.0 kg
[2022-07-23 11:11] VITALS: BP 107/63
[2022-07-23] MEDS ORDERED: BACITRACIN 15GM TUBE TOP ONE (13:45)
== END 2022-07-23 13:44 | disposition home or self-care (01) ==
LOC: ER 11:05
DX: K94.23 Gastrostomy malfunction (principal); Z86.59 Personal history of other mental and behavioral disorders; Z98.890 Other specified postprocedural states
CPT/HCPCS: 99282; 99284

== ENCOUNTER 2022-09-30 06:38 | Emergency (ER) | payer MEDICAID ==
[~2022-09-30] VITALS: Ht 149.9 cm; Wt 41.0 kg
[2022-09-30 06:52] VITALS: BP 143/90
[2022-09-30 08:59] LABS: CHLORIDE 104 mEq/L (98-107)
[2022-09-30 09:09] LABS: HEMATOCRIT. 44.8 % (42.0-52.0); HEMOGLOBIN. 15.1 g/dL (14.0-18.0); MEAN CORPUSCULAR HEMOGLOBIN 29.2 pg (28.0-32.0); MEAN CORPUSCULAR VOLUME 86.7 fL (80.0-94.0); RED BLOOD CELL COUNT 5.17 mill/uL (4.7-6.1); RED CELL DISTRIBUTION WIDTH 13.3 % (11.6-14.6)
[2022-09-30 09:14] LABS: INR 1.2; PROTHROMBIN TIME 12.4 sec (9.6-11.0)
[2022-09-30] MEDS ORDERED: IOHEXOL-300 50 ML BOTTLE IV ONE (11:16)
[2022-09-30] MEDS ORDERED: LIDOCAINE HCL 1% 10 MG/ML 10ML VIAL ONE (11:16)
[2022-09-30] MEDS ORDERED: LIDOCAINE HCL 2% JELLY 5ML ONE (11:17)
== END 2022-09-30 12:43 | disposition home or self-care (01) ==
LOC: ER 06:38
DX: K94.23 Gastrostomy malfunction (principal)
CPT/HCPCS: 36415; 36598; 49450; 80053; 85025; 85610; 99284; Q9967; J3490

== ENCOUNTER 2022-10-22 07:28 | Emergency (ER) | payer MEDICAID ==
[~2022-10-22] VITALS: Ht 149.9 cm; Wt 41.0 kg
[2022-10-22 07:55] VITALS: BP 129/83
[2022-10-22] MEDS ORDERED: DIATR MEGLU/DIATRIZOATE SOLN 30ML PO ONE (08:30)
[2022-10-22] MEDS ORDERED: DIATR MEGLU/DIATRIZOATE SOLN 30ML ONE (13:23)
== END 2022-10-22 14:18 | disposition home or self-care (01) ==
LOC: ER 07:28
DX: Z43.1 Encounter for attention to gastrostomy (principal)
CPT/HCPCS: 74018; 99283; Q9963

== ENCOUNTER 2022-11-24 15:49 | Emergency (ER) | payer MEDICAID ==
[~2022-11-24] VITALS: Ht 134.6 cm; Wt 35.5 kg
[2022-11-24 16:07] VITALS: BP 96/58; TEMP 98.6; O2SAT 95
[2022-11-24] MEDS ORDERED: DIATR MEGLU/DIATRIZOATE SOLN 30ML ONE (16:55)
[2022-11-24 19:35] VITALS: PULSE 72; RESP 18
== END 2022-11-24 19:35 | disposition home or self-care (01) ==
LOC: ER 15:49
DX: Z43.1 Encounter for attention to gastrostomy (principal); R56.9 Unspecified convulsions
CPT/HCPCS: 43760; 74018; 99284; Q9963; Z7610